=== PATIENT | male | born 1950 | race Caucasian/White ===

== ENCOUNTER 2018-05-26 13:20 | Emergency (ER) | payer OTHER ==
[~2018-05-26] VITALS: Ht 177.8 cm; Wt 122.5 kg
[2018-05-26 13:26] VITALS: BP 153/92
== END 2018-05-26 14:24 | disposition home or self-care (01) ==
LOC: ER 13:20
DX: H66.91 Otitis media, unspecified, right ear (principal); E11.9 Type 2 diabetes mellitus without complications; M10.9 Gout, unspecified; I10 Essential (primary) hypertension

== ENCOUNTER 2021-12-19 10:35 | Inpatient (IN) | payer OTHER ==
[~2021-12-19] VITALS: Ht 177.8 cm; Wt 106.5 kg
[2021-12-19 11:39] LABS: Basophils # (auto) 0.1 10 ^3/uL (0-0.2); Basophils % (auto) 0.9 % (0.0-2.0); Eosinophils # (auto) 0.2 10 ^3/uL (0-0.8); Eosinophils % (auto) 1.7 % (0.0-7.0); Hematocrit 46.6 % (41.0-53.0); Hemoglobin 15.9 g/dL (13.5-17.5); Lymphocytes # (auto) 1.8 10 ^3/uL (0.4-5.4); Lymphocytes % (auto) 20.2 % (10.0-50.0); Mean Corpuscular Hemoglobin 29.8 pg (28.0-32.0); Mean Corpuscular Hgb Conc. 34.1 g/dL (32.0-36.0); Mean Corpuscular Volume 87.4 fL (80.0-100.0); Monocytes # (auto) 0.6 10 ^3/uL (0-1.3); Monocytes % (auto) 6.9 % (0.0-12.0); Neutrophils # (auto) 6.4 10 ^3/uL (1.6-8.6); Neutrophils % (auto) 70.3 % (37.0-80.0); Nucleated Red Blood Cells % 0.1 %; Red Blood Cells 5.34 10^6/uL (4.5-5.90); Red Cell Distribution Width 15.3 % (11.8-14.3); White Blood Cell 9.2 10^3/uL (4.4-10.8)
[2021-12-19 11:58] LABS: Albumin 3.9 g/dL (3.4-5.0); Calcium 9.5 mg/dL (8.5-10.1); Potassium 4.3 mmol/L (3.5-5.1)
[2021-12-19 12:01] LABS: BUN/Creatinine Ratio 8.8; Bilirubin, Total 1.3 mg/dL (0.2-1.0); Total Protein 7.6 g/dL (6.4-8.2)
[2021-12-19] MEDS ORDERED: ENOXAPARIN SOD 100 MG/1 ML SYRINGE SC ONE (13:15)
[2021-12-19 16:30] LABS: Urine Bacteria FEW /hpf (None Seen); Urine Blood Negative /uL (Negative); Urine Mucus FEW (None Seen); Urine Specific Gravity 1.021 (1.001-1.035); Urine WBC 1 /hpf (0 - 3)
[2021-12-19] MEDS ORDERED: FUROSEMIDE 100 MG/10ML VIAL IV ONE (17:30)
[2021-12-19] MEDS ORDERED: cefTRIAXone 1GM/50ML D5W 50 ML IV ONE (17:30)
[2021-12-19] MEDS ORDERED: SODIUM CHLORIDE 0.9% 500 ML IV ONE (17:30)
[2021-12-19] MEDS ORDERED: DEXTROSE (50%) 50ML SYRG IV PRN (17:30)
[2021-12-19] MEDS ORDERED: AZITHROMYCIN 500MG/ 250ML 250 ML IV ONE (17:30)
[2021-12-19] MEDS ORDERED: MORPHINE SULFATE INJ 2 MG/ml SYRG IV PRN (17:45)
[2021-12-19] MEDS ORDERED: NITROGLYCERIN 0.4 MG SL TAB SL PRN (17:45)
[2021-12-19] MEDS ORDERED: NITROGLYCERIN 0.4MG/HR TOPICAL PATCH TD ONE (17:45)
[2021-12-19] MEDS ORDERED: hydrALAZINE HCL 20 MG/ML VL IV PRN (18:00)
[2021-12-19 18:17] LABS: Cholesterol 181 mg/dL (< 200)
[2021-12-19 18:19] LABS: HDL Cholesterol 24 mg/dL (40-59); LDL Cholesterol 127 mg/dL (< 100); Triglycerides 195 mg/dL (< 150)
[2021-12-19] MEDS: ONDANSETRON HCL 4 MG/2 ML VIAL IV PRN (19:24)
[2021-12-19 21:46] LABS: Alcohol, Urine < 3.0 mg/dL (0-10); Amphetamine Screen, Urine NEGATIVE (NEGATIVE); Barbiturate Scree,Urine NEGATIVE (NEGATIVE); Benzodiazephine Screen, Urine NEGATIVE (NEGATIVE); Cannabinoid Screen, Urine POSITIVE (NEGATIVE); Cocaine Screen, Urine NEGATIVE (NEGATIVE); Opiate Scree,Urine NEGATIVE (NEGATIVE); Phencyclidine Screen, Urine NEGATIVE (NEGATIVE)
[2021-12-19 22:00] VITALS: BP 112/67
[2021-12-19 22:10] VITALS: BP 106/72
[2021-12-19] MEDS ORDERED: LISI20TA28 PO (22:28)
[2021-12-19] MEDS ORDERED: OMEP20TA PO (22:28)
[2021-12-19] MEDS ORDERED: ALLO300T2 PO (22:29)
[2021-12-19] MEDS: ACCU-CHEK COMFORT CURVE STRIP VI SCH (22:38)
[2021-12-19] MEDS: InsuLIN REG 1unit/0.01ml Soln (100units/ml) SC SCH (22:42)
[2021-12-20 04:58] VITALS: BP 95/53
[2021-12-20 06:11] LABS: Basophils # (auto) 0.1 10 ^3/uL (0-0.2); Basophils % (auto) 1.6 % (0.0-2.0); Eosinophils # (auto) 0.1 10 ^3/uL (0-0.8); Hematocrit 39.7 % (41.0-53.0); Hemoglobin 13.9 g/dL (13.5-17.5); Lymphocytes # (auto) 1.3 10 ^3/uL (0.4-5.4); Lymphocytes % (auto) 17.9 % (10.0-50.0); Mean Corpuscular Hemoglobin 30.5 pg (28.0-32.0); Mean Corpuscular Hgb Conc. 35.1 g/dL (32.0-36.0); Mean Corpuscular Volume 87.1 fL (80.0-100.0); Monocytes # (auto) 0.5 10 ^3/uL (0-1.3); Monocytes % (auto) 6.4 % (0.0-12.0); Neutrophils # (auto) 5.1 10 ^3/uL (1.6-8.6); Neutrophils % (auto) 72.1 % (37.0-80.0); Nucleated Red Blood Cells % 0.1 %; Red Blood Cells 4.56 10^6/uL (4.5-5.90); Red Cell Distribution Width 15.1 % (11.8-14.3); White Blood Cell 7.1 10^3/uL (4.4-10.8)
[2021-12-20 06:30] LABS: Albumin 3.4 g/dL (3.4-5.0); Calcium 9.1 mg/dL (8.5-10.1); Potassium 3.9 mmol/L (3.5-5.1)
[2021-12-20 06:34] LABS: BUN/Creatinine Ratio 8.6; Bilirubin, Total 1.3 mg/dL (0.2-1.0); Total Protein 6.9 g/dL (6.4-8.2)
[2021-12-20] MEDS: ACCU-CHEK COMFORT CURVE STRIP VI SCH (06:37)
[2021-12-20] MEDS: InsuLIN REG 1unit/0.01ml Soln (100units/ml) SC SCH ×3 (06:38→21:34)
[2021-12-20 09:00] VITALS: BP 114/66
[2021-12-20] MEDS ORDERED: OPTISON 3ml Vial for INJ IV ONE (09:39)
[2021-12-20] MEDS ORDERED: NITROGLYCERIN 0.4MG/HR TOPICAL PATCH TD SCH (10:00)
[2021-12-20] MEDS ORDERED: ENOXAPARIN SOD 40 MG/0.4 ML SYRINGE SC SCH (10:00)
[2021-12-20] MEDS ORDERED: ASPirin-EC 81 mg tab PO ONE (11:45)
[2021-12-20 13:00] VITALS: BP 118/77
[2021-12-20] MEDS: DOXYCYCLINE 100MG/250ML 250 ML IV SCH (13:18)
[2021-12-20] MEDS: cefTRIAXone 1GM/50ML D5W 50 ML IV SCH (16:19)
[2021-12-20 16:35] VITALS: BP 142/76
[2021-12-20] MEDS ORDERED: AZITHROMYCIN 500MG/ 250ML 250 ML IV SCH (17:00)
[2021-12-20] MEDS: ATORVASTATIN 20 MG TAB PO SCH (21:36)
[2021-12-20] MEDS: ENOXAPARIN SOD 120 MG/0.8 ML SYRINGE SC SCH (21:36)
[2021-12-20] MEDS ORDERED: ENOXAPARIN SOD 100 MG/1 ML SYRINGE SC SCH (22:00)
[2021-12-21] VITALS (7 sets, daily range): BP systolic 101–130; BP diastolic 62–108
[2021-12-21] MEDS: DOXYCYCLINE 100MG/250ML 250 ML IV SCH ×2 (00:07→11:14)
[2021-12-21 06:30] LABS: BUN/Creatinine Ratio 9.9; Calcium 9.3 mg/dL (8.5-10.1)
[2021-12-21] MEDS: PANTOPRAZOLE 40 MG TAB PO SCH (08:49)
[2021-12-21] MEDS: ASPirin-EC 81 mg tab PO SCH (08:49)
[2021-12-21] MEDS: ENOXAPARIN SOD 120 MG/0.8 ML SYRINGE SC SCH ×2 (08:49→22:00)
[2021-12-21] MEDS: cefTRIAXone 1GM/50ML D5W 50 ML IV SCH (18:54)
[2021-12-21] MEDS: InsuLIN REG 1unit/0.01ml Soln (100units/ml) SC SCH (22:00)
[2021-12-21] MEDS: ATORVASTATIN 20 MG TAB PO SCH (23:27)
[2021-12-22] VITALS (11 sets, daily range): BP systolic 115–138; BP diastolic 54–94
[2021-12-22] MEDS: DOXYCYCLINE 100MG/250ML 250 ML IV SCH ×2 (00:17→12:00)
[2021-12-22 06:49] LABS: Albumin 3.5 g/dL (3.4-5.0); Calcium 9.6 mg/dL (8.5-10.1)
[2021-12-22 06:52] LABS: BUN/Creatinine Ratio 12.1; Bilirubin, Total 1.2 mg/dL (0.2-1.0); Total Protein 7.3 g/dL (6.4-8.2)
[2021-12-22 07:00] LABS: Basophils # (auto) 0.1 10 ^3/uL (0-0.2); Basophils % (auto) 1.2 % (0.0-2.0); Eosinophils # (auto) 0.2 10 ^3/uL (0-0.8); Eosinophils % (auto) 3.9 % (0.0-7.0); Hemoglobin 15.2 g/dL (13.5-17.5); Lymphocytes # (auto) 1.3 10 ^3/uL (0.4-5.4); Lymphocytes % (auto) 24.3 % (10.0-50.0); Mean Corpuscular Hemoglobin 30.5 pg (28.0-32.0); Mean Corpuscular Hgb Conc. 35.4 g/dL (32.0-36.0); Mean Corpuscular Volume 86.2 fL (80.0-100.0); Monocytes # (auto) 0.4 10 ^3/uL (0-1.3); Monocytes % (auto) 7.8 % (0.0-12.0); Neutrophils # (auto) 3.3 10 ^3/uL (1.6-8.6); Neutrophils % (auto) 62.8 % (37.0-80.0); Nucleated Red Blood Cells % 0.1 %; Red Blood Cells 4.99 10^6/uL (4.5-5.90); White Blood Cell 5.2 10^3/uL (4.4-10.8)
[2021-12-22 07:02] LABS: INR 1.16 (0.9-1.15); Partial Thromboplastin Time 32.5 sec (23.6-33.0)
[2021-12-22] MEDS ORDERED: SODIUM CHLORIDE 0.9% 1,000 ML IV SCH ×2 (09:30→14:00)
[2021-12-22] MEDS: ASPirin-EC 81 mg tab PO SCH (10:00)
[2021-12-22] MEDS: ENOXAPARIN SOD 120 MG/0.8 ML SYRINGE SC SCH ×2 (10:00→21:21)
[2021-12-22] MEDS: PANTOPRAZOLE 40 MG TAB PO SCH (10:00)
[2021-12-22] MEDS ORDERED: IOHEXOL 350 MG/ML 100ML IJ ONE (11:50)
[2021-12-22] MEDS ORDERED: LIDOCAINE 2%HCL (LOCAL ANESTH.) INJ 10ml MDV ONE (11:50)
[2021-12-22] MEDS ORDERED: ANGIOMAX 250 MG VIAL IV ONE (11:55)
[2021-12-22] MEDS ORDERED: HEPARIN SODIUM (PORCINE) 5000 UNITS/ML 1ML VIAL ONE (11:55)
[2021-12-22] MEDS ORDERED: fentaNYL CITRATE 100 MCG/2 ML VL ONE (11:56)
[2021-12-22] MEDS ORDERED: MIDAZOLAM HCL 2MG/2ML 2ml VIAL (1mg/ml) ONE (11:56)
[2021-12-22] MEDS ORDERED: VERAPAMIL 2.5MG/ML INJ 2ML VIAL IV ONE ×2 (11:56→12:36)
[2021-12-22] MEDS ORDERED: SODIUM CHL 0.9% 50 ML ONE (11:57)
[2021-12-22] MEDS ORDERED: IODIXANOL 320MG/ML 100ML BTL IV ONE (12:11)
[2021-12-22] MEDS ORDERED: CLOPIDOGREL 300 MG TAB ONE (13:00)
[2021-12-22] MEDS ORDERED: ASPirin 81 mg TAB ONE (13:01)
[2021-12-22 14:57] LABS: Basophils # (auto) 0.1 10 ^3/uL (0-0.2); Basophils % (auto) 0.9 % (0.0-2.0); Eosinophils # (auto) 0.2 10 ^3/uL (0-0.8); Eosinophils % (auto) 3.8 % (0.0-7.0); Hematocrit 42.8 % (41.0-53.0); Hemoglobin 14.8 g/dL (13.5-17.5); Lymphocytes # (auto) 1.4 10 ^3/uL (0.4-5.4); Lymphocytes % (auto) 24.6 % (10.0-50.0); Mean Corpuscular Hemoglobin 29.8 pg (28.0-32.0); Mean Corpuscular Hgb Conc. 34.6 g/dL (32.0-36.0); Monocytes # (auto) 0.4 10 ^3/uL (0-1.3); Monocytes % (auto) 7.9 % (0.0-12.0); Neutrophils # (auto) 3.5 10 ^3/uL (1.6-8.6); Neutrophils % (auto) 62.8 % (37.0-80.0); Nucleated Red Blood Cells % 0.3 %; Red Blood Cells 4.97 10^6/uL (4.5-5.90); Red Cell Distribution Width 15.2 % (11.8-14.3); White Blood Cell 5.5 10^3/uL (4.4-10.8)
[2021-12-22] MEDS: ATORVASTATIN 20 MG TAB PO SCH (21:20)
[2021-12-22] MEDS: InsuLIN REG 1unit/0.01ml Soln (100units/ml) SC SCH (21:32)
[2021-12-22] MEDS ORDERED: ACETAMINOPHEN 325 MG TAB PO PRN (22:15)
[2021-12-23] MEDS: ONDANSETRON HCL 4 MG/2 ML VIAL IV PRN (04:54)
[2021-12-23 05:00] VITALS: BP 130/68
[2021-12-23 06:39] LABS: Albumin 3.4 g/dL (3.4-5.0); BUN/Creatinine Ratio 15.5; Calcium 9.5 mg/dL (8.5-10.1); Total Protein 7.1 g/dL (6.4-8.2)
[2021-12-23 08:00] VITALS: BP 116/75
[2021-12-23 09:00] VITALS: BP 116/75
[2021-12-23] MEDS: PANTOPRAZOLE 40 MG TAB PO SCH (09:59)
[2021-12-23] MEDS ORDERED: CLOPIDOGREL BISULFATE 75 MG TAB PO SCH (10:00)
[2021-12-23] MEDS ORDERED: CARVEDILOL 3.125 MG TAB PO SCH (10:00)
[2021-12-23] MEDS: ASPirin-EC 81 mg tab PO SCH (10:03)
[2021-12-23] MEDS ORDERED: CAR3125T PO (11:03)
[2021-12-23] MEDS ORDERED: ASPI-543 PO (11:03)
[2021-12-23] MEDS ORDERED: PANT40T PO (11:03)
[2021-12-23] MEDS ORDERED: ATOR40TA52 PO (11:03)
[2021-12-23] MEDS ORDERED: CLOP75TA70 PO (11:03)
[2021-12-23 13:07] VITALS: BP 116/75
== END 2021-12-23 14:00 | disposition home or self-care (01) | DRG 246 ==
LOC: ER 10:35 → TELE 17:36 → TELE-EAST 21:30
PROVIDERS: ADMIT Registered Nurse; ATTEND Internal Medicine
PROC: 4A023N7 Measurement of Cardiac Sampling and Pressure, Left Heart, Percutaneous Approach (ICD-10-PCS; principal; 2021-12-22)
PROC: 027135Z Dilation of Coronary Artery, Two Arteries with Two Drug-eluting Intraluminal Devices, Percutaneous Approach (ICD-10-PCS; 2021-12-22)
PROC: B211YZZ Fluoroscopy of Multiple Coronary Arteries using Other Contrast (ICD-10-PCS; 2021-12-22)
PROC: B215YZZ Fluoroscopy of Left Heart using Other Contrast (ICD-10-PCS; 2021-12-22)
PROC: B241ZZ3 Ultrasonography of Multiple Coronary Arteries, Intravascular (ICD-10-PCS; 2021-12-22)
DX: I21.4 Non-ST elevation (NSTEMI) myocardial infarction (principal); I50.43 Acute on chronic combined systolic (congestive) and diastolic (congestive) heart failure; I13.0 Hypertensive heart and chronic kidney disease with heart failure and stage 1 through stage 4 chronic kidney disease, or unspecified chronic kidney disease; E11.22 Type 2 diabetes mellitus with diabetic chronic kidney disease; K21.9 Gastro-esophageal reflux disease without esophagitis; M10.9 Gout, unspecified; N18.31 Chronic kidney disease, stage 3a; E66.01 Morbid (severe) obesity due to excess calories; I25.10 Atherosclerotic heart disease of native coronary artery without angina pectoris; I25.5 Ischemic cardiomyopathy; E78.5 Hyperlipidemia, unspecified; Z85.528 Personal history of other malignant neoplasm of kidney; Z68.33 Body mass index [BMI] 33.0-33.9, adult
CPT/HCPCS: 36415; 37252; 71045; 80048; 80053; 80061; 80307; 81001; 82962; 83036; 83605; 83880; 84484; 85025; 85379; 85610; 85730; 86850; 86900; 86901; 87040; 87077; 87186; 92928; 92929; 93005; 93306; 93458; 96365; 96372; 96375; 99152; 99153; C1874; G0378; J0696; J1815; J2001; J2250; J2405; J3490; Q9956; Q9967

== ENCOUNTER 2022-01-21 07:53 | Emergency (ER) | payer OTHER ==
[~2022-01-21] VITALS: Ht 177.8 cm; Wt 106.6 kg
[~2022-01-21 07:53] MED LIST: ALLO300T2 PO; ASPI-543 PO; ATOR40TA52 PO; CAR3125T PO; CLOP75TA70 PO; LISI20TA28 PO; PANT40T PO
[2022-01-21 07:54] VITALS: BP 140/91
[2022-01-21] MEDS ORDERED: TRAM-297 PO (10:12)
[2022-01-21] MEDS ORDERED: PRED20TA2 PO (10:12)
== END 2022-01-21 10:16 | disposition home or self-care (01) ==
LOC: ER 07:53
DX: M19.012 Primary osteoarthritis, left shoulder (principal); M19.011 Primary osteoarthritis, right shoulder; K21.9 Gastro-esophageal reflux disease without esophagitis; E11.9 Type 2 diabetes mellitus without complications; I10 Essential (primary) hypertension; F12.10 Cannabis abuse, uncomplicated
CPT/HCPCS: 73030; 73130; 93005; 93971

== ENCOUNTER 2023-04-23 07:12 | Emergency (ER) | payer OTHER ==
[~2023-04-23] VITALS: Ht 177.8 cm; Wt 95.1 kg
[~2023-04-23 07:12] MED LIST changes: -LISI20TA28 PO; +LISI20TA56 PO; +PRED20TA2 PO; +TRAM-297 PO
[2023-04-23 07:54] VITALS: BP 140/84; PULSE 120; RESP 20; TEMP 97.1; O2SAT 99
[2023-04-23] MEDS ORDERED: cefTRIAXone SOD 1,000 MG VL IM ONE (08:30)
[2023-04-23] MEDS ORDERED: HYDROcodone-ACET 5/325MG TAB PO ONE (08:30)
[2023-04-23] MEDS ORDERED: OFL50TS OT (08:34)
[2023-04-23] MEDS ORDERED: AUG875T PO (08:34)
== END 2023-04-23 08:49 | disposition home or self-care (01) ==
LOC: ER 07:12
DX: J03.90 Acute tonsillitis, unspecified (principal); H66.93 Otitis media, unspecified, bilateral; E11.9 Type 2 diabetes mellitus without complications; K21.9 Gastro-esophageal reflux disease without esophagitis; I10 Essential (primary) hypertension
CPT/HCPCS: 96372; 99283; J0696

== ENCOUNTER 2024-03-08 10:18 | Inpatient (IN) | payer MEDICARE, OTHER ==
[~2024-03-08] VITALS: Ht 177.8 cm; Wt 112.3 kg
[2024-03-08] VITALS (10 sets, daily range): BP systolic 113–120; BP diastolic 56–82; PULSE 48–137; RESP 16–20; TEMP 96–98.2; O2SAT 93–100
[~2024-03-08 10:18] MED LIST changes: +AUG875T PO; -CAR3125T PO; +CARV-214 PO; +OFL50TS OT
[2024-03-08 11:24] LABS: Basophils # (auto) 0.1 10 ^3/uL (0-0.2); Basophils % (auto) 0.8 % (0.0-2.0); Eosinophils # (auto) 0.1 10 ^3/uL (0-0.8); Hematocrit 41.3 % (41.0-53.0); Lymphocytes # (auto) 1.2 10 ^3/uL (0.4-5.4); Lymphocytes % (auto) 14.6 % (10.0-50.0); Mean Corpuscular Hemoglobin 28.7 pg (28.0-32.0); Mean Corpuscular Hgb Conc. 33.8 g/dL (32.0-36.0); Monocytes # (auto) 0.7 10 ^3/uL (0-1.3); Monocytes % (auto) 8.3 % (0.0-12.0); Neutrophils # (auto) 6.2 10 ^3/uL (1.6-8.6); Neutrophils % (auto) 75.3 % (37.0-80.0); Nucleated Red Blood Cells % 0.1 %; Red Blood Cells 4.86 10^6/uL (4.5-5.90); Red Cell Distribution Width 16.7 % (11.8-14.3); White Blood Cell 8.2 10^3/uL (4.4-10.8)
[2024-03-08 11:40] LABS: Alanine Aminotransferase 17 U/L (7-40); Albumin 4.3 g/dL (3.2-4.8); Alkaline Phosphatase 106 U/L (46-116); Anion Gap 8 (5-15); Aspartate Aminotransferase 13 U/L (13-40); BUN/Creatinine Ratio 7.9 (10.0-20.0); Bilirubin, Total 1.4 mg/dL (0.2-1.0); Blood Urea Nitrogen 14 mg/dL (9-23); Calcium 9.7 mg/dL (8.7-10.4); Carbon Dioxide 22 mmol/L (20-30); Chloride 101 mmol/L (98-107); Glucose 132 mg/dL (74-106); Potassium 4.1 mmol/L (3.5-5.1); Sodium 131 mmol/L (136-145); Total Protein 6.8 g/dL (5.7-8.2)
[2024-03-08] MEDS: METOPROLOL TARTRATE 1MG/1ML-5ML VIAL IV ONE (13:13)
[2024-03-08] MEDS: FUROSEMIDE 40 MG/4 ML VIAL IV ONE (13:30)
[2024-03-08] MEDS: SODIUM CHLORIDE 0.9% 500 ML IV ONE (13:30)
[2024-03-08] MEDS: LEVALBUTEROL HCL 1.25 MG/3 ML NEB NEB SCH (13:37)
[2024-03-08] MEDS ORDERED: HYDROmorphone HCL 2 MG/ML VL/or syr IV PRN (14:45)
[2024-03-08] MEDS ORDERED: HYDROcodone-ACET 5/325MG TAB PO PRN (14:45)
[2024-03-08] MEDS ORDERED: ACETAMINOPHEN 325 MG TAB PO PRN (14:45)
[2024-03-08] MEDS: LABETALOL HCL 20 MG/4 ML VL IV ONE (15:30)
[2024-03-08] MEDS: dilTIAZem 25 MG/5 ML VIAL IV ONE (16:17)
[2024-03-08] MEDS ORDERED: PATIENTS OWN MEDICATION (Atorvastatin Calcium 1 TAB) PO SCH (18:00)
[2024-03-08] MEDS: IPRATROPIUM BROM 0.5 MG/2.5ML INH SOL NEB PRN (19:10)
[2024-03-08] MEDS: FUROSEMIDE 40 MG/4 ML VIAL IV SCH (20:54)
[2024-03-08] MEDS: CARVEDILOL 3.125 MG TAB PO SCH (20:55)
[2024-03-08] MEDS: DOCUSATE SOD 100 MG CAP PO PRN (20:55)
[2024-03-08] MEDS ORDERED: ATORVASTATIN 20 MG TAB PO SCH (22:00)
[2024-03-09] VITALS (19 sets, daily range): BP systolic 87–116; BP diastolic 62–84; PULSE 51–136; RESP 16–22; TEMP 97.7–98.7; O2SAT 94–100
[2024-03-09] MEDS: SODIUM CHLOR 0.9% PF (SALINE LOCK) 10ML VIAL/SYR IV SCH (06:37)
[2024-03-09] MEDS ORDERED: EMPA1TAB PO (08:49)
[2024-03-09] MEDS: CLOPIDOGREL BISULFATE 75 MG TAB PO SCH (08:50)
[2024-03-09] MEDS: ASPirin-EC 81 mg tab PO SCH (08:50)
[2024-03-09] MEDS: PANTOPRAZOLE 40 MG TAB PO SCH (08:50)
[2024-03-09 11:27] LABS: Chloride 102 mmol/L (98-107); Potassium 4.5 mmol/L (3.5-5.1); Sodium 134 mmol/L (136-145)
[2024-03-09 11:28] LABS: Anion Gap 11 (5-15); Calcium 9.9 mg/dL (8.7-10.4); Carbon Dioxide 21 mmol/L (20-30)
[2024-03-09 11:33] LABS: BUN/Creatinine Ratio 10.9 (10.0-20.0); Blood Urea Nitrogen 21 mg/dL (9-23); Glucose 122 mg/dL (74-106)
[2024-03-09 13:38] LABS: Triglycerides 90 mg/dL (< 150)
[2024-03-09 13:39] LABS: LDL Cholesterol 27 mg/dL (< 100)
[2024-03-09 13:40] LABS: Cholesterol 74 mg/dL (< 200); HDL Cholesterol 30 mg/dL (40-59)
[2024-03-09] MEDS: guaiFENesin 200 MG/10 ML UD PO PRN (14:41)
[2024-03-09] MEDS: ONDANSETRON HCL 4 MG/2 ML VIAL IV PRN (15:32)
[2024-03-09 20:51] LABS: Protein, Urine 17.4 mg/dL (0.0-11.9)
[2024-03-09 20:52] LABS: Amphetamine Screen, Urine Neg (NEGATIVE); Barbiturate Scree,Urine Neg (NEGATIVE); Benzodiazephine Screen, Urine Neg (NEGATIVE); Cocaine Screen, Urine Neg (NEGATIVE); Opiate Scree,Urine Neg (NEGATIVE)
[2024-03-09 20:53] LABS: Cannabinoid Screen, Urine Pos (NEGATIVE); Phencyclidine Screen, Urine Neg (NEGATIVE)
[2024-03-09 20:54] LABS: Creatinine, Urine 123.92 mg/dL (30.0-125.0)
[2024-03-09 21:03] LABS: Urine Bacteria FEW /hpf (None Seen); Urine Blood Negative /uL (Negative); Urine Clarity Clear (Clear); Urine Color Yellow (Yellow); Urine Protein, UAD TRACE (Negative); Urine Specific Gravity 1.015 (1.001-1.035); Urine Urobilinogen Normal (Negative); Urine WBC 13 /hpf (0 - 3)
[2024-03-09] MEDS: ATORVASTATIN 20 MG TAB PO SCH (21:46)
[2024-03-09] MEDS: CARVEDILOL 3.125 MG TAB PO SCH (23:11)
[2024-03-10] VITALS (14 sets, daily range): BP systolic 91–122; BP diastolic 60–80; PULSE 59–125; RESP 16–20; TEMP 97.7–98.7; O2SAT 90–100
[2024-03-10] MEDS: ALBUTEROL SULF 2.5 MG/0.5ML(0.5%) NEB SOLN NEB PRN (03:10)
[2024-03-10 06:59] LABS: Anion Gap 9 (5-15); Carbon Dioxide 22 mmol/L (20-30); Chloride 100 mmol/L (98-107); Potassium 5.1 mmol/L (3.5-5.1); Sodium 131 mmol/L (136-145)
[2024-03-10 07:00] LABS: Calcium 9.8 mg/dL (8.7-10.4)
[2024-03-10 07:05] LABS: BUN/Creatinine Ratio 11.3 (10.0-20.0); Blood Urea Nitrogen 23 mg/dL (9-23); Glucose 143 mg/dL (74-106)
[2024-03-10 07:11] LABS: Basophils # (auto) 0.1 10 ^3/uL (0-0.2); Basophils % (auto) 0.7 % (0.0-2.0); Eosinophils # (auto) 0.1 10 ^3/uL (0-0.8); Eosinophils % (auto) 1.2 % (0.0-7.0); Hematocrit 38.9 % (41.0-53.0); Hemoglobin 13.2 g/dL (13.5-17.5); Lymphocytes # (auto) 1.3 10 ^3/uL (0.4-5.4); Lymphocytes % (auto) 15.2 % (10.0-50.0); Mean Corpuscular Hemoglobin 28.9 pg (28.0-32.0); Mean Corpuscular Volume 85.2 fL (80.0-100.0); Monocytes # (auto) 0.6 10 ^3/uL (0-1.3); Monocytes % (auto) 7.2 % (0.0-12.0); Neutrophils # (auto) 6.7 10 ^3/uL (1.6-8.6); Neutrophils % (auto) 75.7 % (37.0-80.0); Nucleated Red Blood Cells % 0.4 %; Red Blood Cells 4.57 10^6/uL (4.5-5.90); Red Cell Distribution Width 16.6 % (11.8-14.3); White Blood Cell 8.8 10^3/uL (4.4-10.8)
[2024-03-10] MEDS: EMPAGLIFLOZIN 10 MG TAB PO SCH (08:58)
[2024-03-10 09:46] LABS: Hepatitis B Surface Antigen Negative (Negative)
[2024-03-10 10:08] LABS: Hepatitis C Antibody Negative (Negative)
[2024-03-10] MEDS: FUROSEMIDE 40 MG/4 ML VIAL IV SCH (10:45)
[2024-03-10] MEDS: cefTRIAXone 1GM/50ML D5W 50 ML IV ONE (13:01)
[2024-03-10] MEDS: metOLazone 5 MG TAB PO ONE (16:06)
[2024-03-10] MEDS: DIGOXIN (250MCG/ML) 2 ML AMPULE IV ONE (16:06)
[2024-03-10] MEDS ORDERED: FUROSEMIDE 20 MG/2 ML VIAL IV SCH (22:00)
[2024-03-11] MEDS ORDERED: cefTRIAXone 1GM/50ML D5W 50 ML IV SCH (09:00)
[2024-03-11] MEDS ORDERED: ALLOPURINOL 100 MG TAB PO SCH (10:00)
[2024-03-11] MEDS ORDERED: ENOXAPARIN SOD 120 MG/0.8 ML SYRINGE SC SCH (10:00)
== END 2024-03-10 19:00 | disposition left against medical advice (07) | DRG 291 ==
LOC: ER 10:18 → TELE 14:52 → TELE-WESTW 17:44
PROVIDERS: ADMIT Internal Medicine Geriatric Medicine; ATTEND Surgery
DX: I13.0 Hypertensive heart and chronic kidney disease with heart failure and stage 1 through stage 4 chronic kidney disease, or unspecified chronic kidney disease (principal); I50.23 Acute on chronic systolic (congestive) heart failure; N17.0 Acute kidney failure with tubular necrosis; N30.00 Acute cystitis without hematuria; E11.22 Type 2 diabetes mellitus with diabetic chronic kidney disease; K21.9 Gastro-esophageal reflux disease without esophagitis; M10.9 Gout, unspecified; I77.6 Arteritis, unspecified; E66.9 Obesity, unspecified; I95.9 Hypotension, unspecified; I48.91 Unspecified atrial fibrillation; I25.10 Atherosclerotic heart disease of native coronary artery without angina pectoris; N18.31 Chronic kidney disease, stage 3a; K80.20 Calculus of gallbladder without cholecystitis without obstruction; F12.10 Cannabis abuse, uncomplicated; Z79.82 Long term (current) use of aspirin; Z79.899 Other long term (current) drug therapy; Z85.528 Personal history of other malignant neoplasm of kidney; Z82.49 Family history of ischemic heart disease and other diseases of the circulatory system; Z82.3 Family history of stroke; Z68.35 Body mass index [BMI] 35.0-35.9, adult; I25.2 Old myocardial infarction
CPT/HCPCS: 36415; 71045; 76700; 80048; 80053; 80061; 80307; 81001; 82570; 83880; 84156; 84300; 84484; 85025; 86803; 87040; 87086; 87340; 93005; 93306; 93971; 94640; 96361; 96374; G0378; J2405